=== PATIENT | male | born 1975 | race Caucasian/White ===

== ENCOUNTER → 2022-03-07 | Outpatient (CLI) | payer OTHER ==
[2022-03-07 20:15] LABS: Free Thyroxine 0.96 ng/dL (0.70-1.60); Luteinizing Hormone 2.8 mIU/ml (1.2-10.6); Triiodothyronine, Free 2.99 pg/mL (2.18-3.98)
[2022-03-09 06:10] LABS: HIV AB/P24 AG SCREEN Non Reactive (Non Reactive)
[2022-03-10 19:08] LABS: CHLAMYDIA BY NAA Negative (Negative); GONOCOCCUS BY NAA Negative (Negative); TRICH VAG BY NAA Negative (Negative)
== END | disposition home or self-care (01) ==
LOC: LAB 17:05 → LAB SHORT 17:05
PROVIDERS: Student in an Organized Health Care Education/Training Program
DX: E02 Subclinical iodine-deficiency hypothyroidism (principal); N48.9 Disorder of penis, unspecified; R79.89 Other specified abnormal findings of blood chemistry
CPT/HCPCS: 83002; 84439; 84443; 84481; 86592; 87389; 87491; 87591; 87661

== ENCOUNTER 2022-10-24 09:35 | Observation (INO) | payer OTHER ==
[~2022-10-24] VITALS: Ht 167.6 cm; Wt 104.6 kg
[2022-10-24 11:02] LABS: BASOPHILS ABSOLUTE AUTO 0.03 K/mm3 (0.00-0.23); BASOPHILS PERCENT AUTO 0 % (0-2); EOSINOPHILS ABSOLUTE AUTO 0.01 K/mm3 (0.00-0.68); EOSINOPHILS PERCENT AUTO 0 % (0-6); Hematocrit 49.4 % (37.0-53.0); IMMATURE GRAN ABSOLUTE AUTO 0.04 K/mm3 (0.00-0.10); IMMATURE GRAN PERCENT AUTO 1 % (0-1); LYMPHOCYTES ABSOLUTE AUTO 0.58 K/mm3 (0.84-5.20); LYMPHOCYTES PERCENT AUTO 7 % (21-46); MONOCYTES PERCENT AUTO 8 % (4-13); Mean Corpuscular HGB 31.3 pg (26.0-34.0); Mean Corpuscular HGB Conc 34.4 g/dL (31.5-36.5); Mean Corpuscular Volume 91 fL (80-100); Mean Platelet Volume 10.2 fL (9.1-12.4); NEUTROPHILS ABSOLUTE AUTO 7.23 K/mm3 (1.96-9.15); NEUTROPHILS PERCENT AUTO 84 % (41-73); Platelet Count 230 K/mm3 (150-400); RDW Coefficient Variation 14.2 % (11.7-14.2); RDW Standard Deviation 47.7 fL (35.1-46.3); Red Blood Cell Count 5.43 M/mm3 (4.30-5.90); White Blood Cell Count 8.59 K/mm3 (4.00-11.30)
[2022-10-24 11:15] LABS: Albumin, Blood 3.5 g/dL (3.4-5.0); Albumin/Globulin Ratio 0.9 (0.8-1.8); Bilirubin, Total 0.7 mg/dL (0.1-1.0); Bun/Creatinine Ratio 11.3 (12.0-20.0); Calcium, Blood 8.9 mg/dL (8.5-10.1); Creatinine, Blood 1.06 mg/dL (0.60-1.20); Globulin, Blood 4.1 g/dL (2.2-4.0); Potassium, Blood 5.2 mmol/L (3.5-5.5); Total Protein, Blood 7.6 g/dL (6.4-8.2)
[2022-10-24 13:43] LABS: Influenza A, PCR NEGATIVE (NEGATIVE); Influenza B, PCR NEGATIVE (NEGATIVE); Resp Syncytial Virus, PCR NEGATIVE (NEGATIVE); SARS-Cov-2 (COVID-19) PCR, MMC NEGATIVE (NEGATIVE)
[2022-10-24] MEDS ORDERED: PRED20 PO (15:05)
[2022-10-24 17:11] VITALS: BP 119/66
[2022-10-24] MEDS ORDERED: TIOT18 INH (17:22)
[2022-10-24] MEDS ORDERED: ALBU90OI (17:23)
[2022-10-24] MEDS ORDERED: MONT10T PO (17:24)
[2022-10-24] MEDS ORDERED: CLOBETASOL EMOL15 G1 (17:25)
[2022-10-24] MEDS ORDERED: CLARITIN10 M4 PO (17:26)
--- NOTE | 2022-10-24 18:46 | NUR ---
SHIFT SUMMARY: ASSUMED CARE OF PATIENT UPON HIS ARRIVAL FROM ED AT 1708. PATIENT APPEARS A BIT ANXIOUS, DID NOT WANT TO BE ADMITTED. PLACED ON TELEMETRY, SINUS TACH IN 110'S, STATED HE "CAN FEEL MY HEART BEATING IN MY BRAIN." HR HAS SINCE DECLINED TO HIGH 90'S-LOW 100'S. ON O2 @ 2 L/MIN NC, HAS OWN PULSE OXIMETER, 95-96%. IS CURRENT SMOKER; GAVE EDUCATION ABOUT OXYGEN SAFETY, DENIED HAVING ANY INCENDIARY DEVICES IN HIS POSSESSION. CALL LIGHT AND BELONGINGS IN REACH.
[2022-10-24 20:07] VITALS: BP 118/61
[2022-10-25 06:22] LABS: BASOPHILS ABSOLUTE AUTO 0.04 K/mm3 (0.00-0.23); BASOPHILS PERCENT AUTO 0 % (0-2); EOSINOPHILS PERCENT AUTO 0 % (0-6); Hematocrit 44.2 % (37.0-53.0); Hemoglobin 15.3 g/dL (13.5-17.5); IMMATURE GRAN ABSOLUTE AUTO 0.11 K/mm3 (0.00-0.10); IMMATURE GRAN PERCENT AUTO 1 % (0-1); LYMPHOCYTES PERCENT AUTO 4 % (21-46); MONOCYTES ABSOLUTE AUTO 0.57 K/mm3 (0.16-1.47); MONOCYTES PERCENT AUTO 3 % (4-13); Mean Corpuscular HGB 31.3 pg (26.0-34.0); Mean Corpuscular HGB Conc 34.6 g/dL (31.5-36.5); Mean Corpuscular Volume 90 fL (80-100); Mean Platelet Volume 9.8 fL (9.1-12.4); NEUTROPHILS ABSOLUTE AUTO 17.81 K/mm3 (1.96-9.15); NEUTROPHILS PERCENT AUTO 93 % (41-73); Platelet Count 204 K/mm3 (150-400); Red Blood Cell Count 4.89 M/mm3 (4.30-5.90); White Blood Cell Count 19.23 K/mm3 (4.00-11.30)
[2022-10-25 06:42] LABS: Bun/Creatinine Ratio 17.7 (12.0-20.0); Calcium, Blood 8.5 mg/dL (8.5-10.1); Creatinine, Blood 1.24 mg/dL (0.60-1.20)
[2022-10-25] MEDS ORDERED: DOXY100 PO (10:55)
[2022-10-25] MEDS ORDERED: PRED20 PO (10:58)
--- NOTE | 2022-10-25 12:54 | NUR ---
1134 DISCHARGE HOME, PATIENT AND SPOUSE STATED UNDERSTANDING OF DISCHARGE INFORMATION AND MEDICATION NEEDS, AND FOLLOW UP CARE
== END 2022-10-25 11:40 | disposition home or self-care (01) ==
LOC: ER 09:35 → MEDS 09:36 → ENPENDDIS 10-25 10:13 → MEDS 10-25 11:40
PROVIDERS: Physician Assistant; Student in an Organized Health Care Education/Training Program; ADMIT Hospitalist
DX: J44.1 Chronic obstructive pulmonary disease with (acute) exacerbation (principal); Z88.8 Allergy status to other drugs, medicaments and biological substances; Z20.822 Contact with and (suspected) exposure to COVID-19
CPT/HCPCS: 0241U; 36415; 71046; 80048; 80053; 83880; 84145; 85025; 94640; 94644; 94645; 94664; 94760; 96374; 96375; 96376; 99285-25; A9270; G0378; J1885; J2930; J7030

== ENCOUNTER → 2023-12-12 | Outpatient (CLI) | payer OTHER ==
[~2023-12-12] MED LIST: ALBU90OI; CLARITIN10 M4 PO; CLOBETASOL EMOL15 G1; DOXY100 PO; MONT10T PO; PRED20 PO; TIOT18 INH
[2023-12-18 14:38] LABS: CALCIUM, URINE - PER 24H 36 mg/d (100-250); CALCIUM, URINE - PER VOLUME 1.5 mg/dL; CHLORIDE, URINE - PER 24H 120 mmol/d (140-250); CHLORIDE, URINE - PER VOLUME 50 mmol/L; CITRIC ACID, URINE - PER 24H 94 mg/d (320-1240); CITRIC ACID,URINE - PER VOLUME 39 mg/L; CREATININE, URINE - PER 24H 624 mg/d (1000-2500); CREATININE, URINE - PER VOLUME 26 mg/dL; HOURS COLLECTED 24 hr; MAGNESIUM, URINE - PER VOLUME <1.4 mg/dL; MAGNESIUM, URINE PER 24H <34 mg/d (12-199); OXALATE, URINE - PER 24H 29 mg/d (16-49); OXALATE, URINE - PER VOLUME 12 mg/L; PH, URINE 6.27 (5.00-7.50); PHOSPHORUS, URINE - PER 24H 264 mg/d (400-1300); PHOSPHORUS, URINE - PER VOLUME 11 mg/dL; POTASSIUM, URINE - PER 24H 38 mmol/d (25-125); POTASSIUM, URINE - PER VOLUME 16 mmol/L; SODIUM, URINE - PER 24H 132 mmol/d (51-286); SODIUM, URINE - PER VOLUME 55 mmol/L; SULFATE, URINE - PER 24H < 5 mmol/d (6-30); SULFATE, URINE - PER VOLUME <5 mmol/L; TOTAL VOLUME 2400 mL; URIC ACID, URINE - PER 24H 396 mg/d (250-750); URIC ACID, URINE - PER VOLUME 16.5 mg/dL; URINE SUPERSATURATION INTERP Normal; URINE SUPERSATURATION, CAHPO4 0.15; URINE SUPERSATURATION, CAOX 1.35; URINE SUPERSATURATION, UA CALC 0.15
== END | disposition home or self-care (01) ==
LOC: LAB SHORT 16:51 → LAB 16:51 → LAB FUT 11-27 15:40
PROVIDERS: Nurse Practitioner Acute Care
DX: N20.0 Calculus of kidney (principal)
CPT/HCPCS: 81003; 82131; 82140; 82340; 82436; 82507; 82570; 83735; 83935; 83945; 84105; 84133; 84300; 84392; 84560

== ENCOUNTER → 2024-05-02 | Outpatient (CLI) | payer OTHER ==
[2024-05-09 15:35] LABS: CALCIUM, URINE - PER 24H 151 mg/d (100-250); CALCIUM, URINE - PER VOLUME 5.2 mg/dL; CHLORIDE, URINE - PER 24H 78 mmol/d (140-250); CHLORIDE, URINE - PER VOLUME 27 mmol/L; CITRIC ACID, URINE - PER 24H 641 mg/d (320-1240); CITRIC ACID,URINE - PER VOLUME 221 mg/L; CREATININE, URINE - PER 24H 3219 mg/d (1000-2500); CREATININE, URINE - PER VOLUME 111 mg/dL; HOURS COLLECTED 24 hr; MAGNESIUM, URINE - PER VOLUME 6.7 mg/dL; MAGNESIUM, URINE PER 24H 194 mg/d (12-199); OXALATE, URINE - PER 24H 49 mg/d (16-49); OXALATE, URINE - PER VOLUME 17 mg/L; PHOSPHORUS, URINE - PER 24H 1653 mg/d (400-1300); PHOSPHORUS, URINE - PER VOLUME 57 mg/dL; POTASSIUM, URINE - PER 24H 64 mmol/d (25-125); POTASSIUM, URINE - PER VOLUME 22 mmol/L; SODIUM, URINE - PER 24H 96 mmol/d (51-286); SODIUM, URINE - PER VOLUME 33 mmol/L; SULFATE, URINE - PER 24H 35 mmol/d (6-30); SULFATE, URINE - PER VOLUME 12 mmol/L; TOTAL VOLUME 2900 mL; URIC ACID, URINE - PER 24H 748 mg/d (250-750); URIC ACID, URINE - PER VOLUME 25.8 mg/dL; URINE SUPERSATURATION INTERP Normal; URINE SUPERSATURATION, CAHPO4 0.62; URINE SUPERSATURATION, CAOX 2.95
== END | disposition home or self-care (01) ==
LOC: LAB 15:49 → LAB SHORT 15:49
PROVIDERS: Nurse Practitioner Acute Care
DX: N20.0 Calculus of kidney (principal)
CPT/HCPCS: 81003; 81050; 82131; 82140; 82340; 82436; 82507; 82570; 83735; 83935; 83945; 84105; 84133; 84300; 84392; 84560